=== PATIENT | female | born 1965 | race Caucasian/White ===

== ENCOUNTER 2017-05-21 15:07 | Emergency (ER) | payer OTHER, MEDICARE, MEDICAID ==
[2017-05-21 15:07] VITALS: BP 138/101
[2017-05-21] MEDS ORDERED: ONDANSETRON PF 4 MG/2 ML VIAL. IV ONE (15:15)
[2017-05-21] MEDS ORDERED: KETOROLAC 30 MG/ML VIAL. IV ONE (15:15)
[2017-05-21] MEDS ORDERED: 0.9 % SODIUM CHLORIDE 10 ML DISP.SYRIN. IV PRN (15:15)
[2017-05-21] MEDS ORDERED: IV NORMAL SALINE 1,000ML 1,000 ML IV SCH (15:15)
[2017-05-21] MEDS ORDERED: IOHEXOL 300 MG/ML 75 ML VIAL. IV ONE (15:30)
--- NOTE | 2017-05-21 15:59 | EKG ---
[address] [address] Test Date: 2017-05-21 Test Time: 15:23:30 Pat Name: AMBER MENENDEZ Department: Room: Gender: F [employer] Supervisor: : 1965 Requested By: ELLIS FERMIN Order Number: [id number] Reading MD: Measurements Intervals [place] Rate: 104 P: 72 VA: 132 QRS: 69 QRSD: 74 T: 42 QT: 320 QTc: 421 Interpretive Statements SINUS TACHYCARDIA NO SPECIFIC ECG ABNORMALITIES RI6.01 No previous ECG available for comparison
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
== END 2017-05-21 15:45 | disposition left against medical advice (07) ==
LOC: ER 15:07
DX: S20.219A Contusion of unspecified front wall of thorax, initial encounter (principal); S50.812A Abrasion of left forearm, initial encounter; S60.819A Abrasion of unspecified wrist, initial encounter; S80.812A Abrasion, left lower leg, initial encounter; V47.5XXA Car driver injured in collision with fixed or stationary object in traffic accident, initial encounter; Y93.89 Activity, other specified; Y92.488 Other paved roadways as the place of occurrence of the external cause; Y99.8 Other external cause status
CPT/HCPCS: 93005; 99283-25

== ENCOUNTER → 2017-07-14 | Emergency (ER) | payer MEDICARE, MEDICAID ==
[~2017-07-14] VITALS: Ht 172.7 cm; Wt 59.0 kg
[2017-07-14 07:50] VITALS: BP 137/114
== END | disposition left against medical advice (07) ==
LOC: ER 07:42
DX: R10.9 Unspecified abdominal pain (principal); Z53.21 Procedure and treatment not carried out due to patient leaving prior to being seen by health care provider

== ENCOUNTER 2017-08-11 20:54 | Emergency (ER) | payer MEDICARE, MEDICAID ==
[~2017-08-11] VITALS: Ht 170.2 cm; Wt 61.2 kg
[2017-08-11] MEDS ORDERED: IV NORMAL SALINE 1,000ML 1,000 ML IV ONE (21:30)
[2017-08-11] MEDS ORDERED: IOHEXOL 300 MG/ML 75 ML VIAL. IV ONE (21:30)
[2017-08-11] MEDS ORDERED: ONDANSETRON PF 4 MG/2 ML VIAL. IV ONE (21:45)
[2017-08-11] MEDS ORDERED: HYDROmorphone PF 1 MG/ML DISP.SYRIN IV ONE ×2 (21:45→23:45)
[2017-08-11 21:52] LABS: BASO # 0.1 x10^3/uL (0.0-0.2); BASO % 1 % (0-3); EOS # 0.5 x10^3/uL (0.0-0.7); EOS % 5 % (0-3); HEMATOCRIT 43.3 % (36.0-47.0); HEMOGLOBIN 14.7 g/dL (12.0-15.5); LYMPH # 3.2 x10^3/uL (1.0-4.8); LYMPH % 33 % (24-48); MEAN CORPUSCULAR HEMOGLOBIN 33 pg (25-35); MEAN CORPUSCULAR HGB CONC 34 g/dL (31-37); MEAN CORPUSCULAR VOLUME 96 fL (79-100); MONO # 0.7 x10^3/uL (0.0-1.1); MONO % 7 % (0-9); NEUT # 5.2 x10^3uL (1.8-7.7); NEUT % 54 % (31-73); PLATELET COUNT 340 x10^3/uL (140-400); RED BLOOD COUNT 4.52 x10^6/uL (3.50-5.40); RED CELL DISTRIBUTION WIDTH 12.7 % (11.5-14.5); WHITE BLOOD COUNT 9.7 x10^3/uL (4.0-11.0)
[2017-08-11 22:00] LABS: ALBUMIN 3.8 g/dL (3.4-5.0); CALCIUM 8.9 mg/dL (8.5-10.1); CREATININE 1.1 mg/dL (0.6-1.0); POTASSIUM 4.2 mmol/L (3.5-5.1); TOTAL BILIRUBIN 0.1 mg/dL (0.2-1.0); TOTAL PROTEIN 7.5 g/dL (6.4-8.2)
[2017-08-11 22:50] LABS: BACTERIA,URINE 0 /HPF (0-FEW); BILIRUBIN,URINE NEG (NEG); CLARITY,URINE CLEAR; COLOR,URINE YELLOW; GLUCOSE,URINE NEG (NEG); NITRITE,URINE NEG (NEG); RBC,URINE 0 /HPF (0-2); SQUAMOUS EPITHELIAL CELL,UR FEW /LPF; UROBILINOGEN,URINE 0.2 mg/dL (0.2 mg/dL); WBC,URINE OCC /HPF (0-4)
--- NOTE | 2017-08-11 23:08 | RAD ---
PQRS Compliance Statement: One or more of the following individualized dose reduction techniques were utilized for this examination: 1. Automated exposure control 2. Adjustment of the mA and/or kV according to patient size 3. Use of iterative reconstruction technique CT abdomen/pelvis with contrast August 11, 2017 INDICATION: Possible blockage immediately proximal to the ileostomy bag. Abdominal pain and distention. COMPARISON: None available TECHNIQUE: Multiple axial CT images of the abdomen and pelvis were obtained after the intravenous administration of 75 mL Omnipaque 300. Coronal and sagittal reformats are provided. FINDINGS: Lung bases are clear. Heart size is within normal limits. The liver, spleen and bilateral adrenal glands are normal in appearance. There is mild dilatation of the main pancreatic duct measuring up to 4 mm. The duct is dilated to the level of the ampulla. There is a soft tissue density in the region of the ampulla measuring 7 mm which is nonspecific. There is no intrahepatic or extrahepatic periductal dilatation. The common bile duct is not dilated. No suspicious pancreatic mass is identified. The abdominal aorta is normal in course and caliber with mild atherosclerotic calcification. There are no pathologically enlarged lymph nodes in abdomen or pelvis. There is no free fluid or free intraperitoneal air. Kidneys enhance symmetrically. No suspicious renal mass is identified. There is no hydronephrosis. The stomach is mildly distended with fluid and debris. There are prominent small bowel loops in the right lower quadrant leading up to the ostomy measuring up to 2.9 cm. No adjacent inflammatory changes are present. There is a dilated small bowel loop within a parastomal hernia containing fecal contents. No suspicious pelvic mass is identified. No suspicious osseous lesions are identified. IMPRESSION: 1. There is a parastomal hernia containing fecal contents which appears to contain a prominent small bowel loop. Immediately proximal to this region, there are mildly distended small bowel loops containing fluid measuring up to 2.9 cm. Stomach is mildly distended with fluid and debris. Electronically signed by: Estelle Madison MD (08/11/2017 11:05 PM) [facility]
[2017-08-12 01:06] VITALS: BP 120/84
--- NOTE | 2017-08-12 01:07 | EKG ---
[address] [address] Test Date: 2017-08-11 Test Time: 23:58:06 Pat Name: AMBER MENENDEZ Department: Room: Gender: F [employer] Bonder: ANIA : 1965 Requested By: MATA BLOCK Order Number: [id number] Reading MD: Measurements Intervals [place] Rate: 97 P: 62 PA: 144 QRS: 61 QRSD: 76 T: 44 QT: 352 QTc: 451 Interpretive Statements SINUS RHYTHM NO SPECIFIC ECG ABNORMALITIES RI6.01 Unconfirmed report No previous ECG available for comparison
--- NOTE | 2017-08-12 01:14 | PHYS DOC ---
Past History Past Medical History: Pancreatitis, Other Past Surgical History: Appendectomy, Cholecystectomy, , Other Alcohol Use: Occasionally Drug Use: Cocaine, Marijuana Adult General Chief Complaint Chief Complaint: ABDOMINAL PAIN HPI HPI Patient is a 52-year-old female who has an extensive past medical history including Crohn's colitis requiring a right lower quadrant ileostomy, multiple episodes of small bowel obstructions requiring 19 surgeries in the past, COPD, Tobacco abuse, GI bleed, depression, anxiety, benign lung mass, appendectomy, cholecystectomy, pancreatitis, migraine disorder, glaucoma, periosteal hernia, and a hysterectomy who presents to the ER today secondary to abdominal pain with acute onset after eating dinner. Patient reports the symptoms that she is experiencing today is very similar to her prior small bowel obstructions. Patient reports that her abdomen feels distended and that she feels like she is swollen as a huge lump redness to her colostomy site. Patient reports that she ate) the symptoms. Patient reports that she is on amoxicillin currently for bronchitis/COPD exacerbation. Patient reports that the pain started approximately 3 hours prior to arrival. Patient denies any vomiting. Patient denies any fevers shakes chills. Patient reports she is nauseous. Patient has any blood in her stool. Patient denies any change in her urinary output. Patient reports that she hasn't passed any flatus or stool through her ostomy bag. Patient reports that she was admitted once in the past and [facility] for evaluation of similar symptoms patient understands to do an endoscopy on her however secondary to an argument that her had with the nursing staff they both signed out AGAINST MEDICAL ADVICE at that time. Patient reports that she was admitted to the hospital in the past secondary to coronary artery disease and had a cardiac catheterization by Dr. De Leon that was unremarkable and did not require any stent placement. Patient reports that Dr. Nicolas is her surgeon who was evaluated her and treat her in the past as well. Patient reports Dr. Daniels is the GI doctor who is persistent to the endoscopy on her during her last visit to his hospital. Review of systems: Constitutional: Denies fever or chills Eyes: Denies change in visual acuity, redness, or eye pain HENT: Denies nasal congestion or sore throat Respiratory: Denies cough or shortness of breath All other systems were reviewed and found to be within normal limits, except as documented in this note. Physical exam: Constitutional: Well developed, well nourished, no acute distress, non-toxic appearance. HENT: Normocephalic, atraumatic, bilateral external ears normal, nose normal. Eyes: PERRLA, EOMI, conjunctiva normal, no discharge. Neck: Normal range of motion, no tenderness, supple, no stridor. Cardiovascular: Heart rate regular rhythm, Lungs & Thorax: Bilateral breath sounds clear to auscultation Abdomen: Abdomen appears to have no significant distention however she is tender to palpation and she does have some hardening around the area around her ostomy site. Patient does have bowel sounds. Skin: Warm, dry, no erythema, no rash. Back: Normal spinal curvature Extremities: No tenderness, no cyanosis, no clubbing, ROM intact, no edema. Neurologic: Alert and oriented X 3, normal motor function, normal sensory function, no focal deficits noted. Psychologic: Affect normal, judgement normal, mood normal. Patient's ER physical exam was most remarkable: EKG as interpreted by ER physician reveals: Normal sinus rhythm at a heart rate of [address]-T wave abnormalities no evidence of ST elevation LA, there is one PVC. CT scan of abdomen pelvis: Reveals dilated loops of small bowel to be consistent with small bowel instruction. Labs reviewed: Normal labs. Assessment and plan: 1. This is a 52-year-old female who presents here today secondary to abdominal pain and what appears to be a small bowel obstruction by symptoms and by CT scan. Patient will need to be admitted to the hospital for further evaluation at [facility] secondary to no availability of surgery here at [facility]. I discussed this with the patient and she is in agreement. While in the ER the patient be given IV fluids, adequate analgesia, patient has not had any further emesis in the ER so have not place an NG tube in her. Patient's labs have all been within normal limits. There is no evidence of significant dehydration or abnormalities on her labs. At this time the patient is clinically and hemodynamically stable. She has requested pain medicines on a couple occasions and has been relieved with 1 mg of Dilaudid. Current Medications Current Medications Current Medications Medications (Trade) Dose Ordered Sig/[facility] Start Time Stop Time Status Last Admin Dose Admin Hydromorphone HCl (Dilaudid) 1 mg 1X ONCE 08/11/17 23:45 08/12/17 00:34 DC 08/11/17 23:45 1 MG Iohexol (Omnipaque 300 Mg/ml) 75 ml 1X ONCE 08/11/17 21:30 08/11/17 21:36 DC Ondansetron HCl (Zofran) 4 mg 1X ONCE 08/11/17 21:45 08/11/17 21:46 DC 08/11/17 21:45 4 MG Sodium Chloride 1,000 ml @ 1,000 mls/hr 1X ONCE 08/11/17 21:30 08/11/17 22:29 DC 08/11/17 21:30 1,000 MLS/HR Allergies Allergies Allergies Coded Allergies Type Severity Reaction Last Updated Verified fluticasone Allergy Intermediate 08/11/17 Yes salmeterol Allergy Intermediate 08/11/17 Yes aspirin Allergy Mild 08/11/17 Yes Physical Exam Physical Exam Laboratory Tests Test 08/11/17 21:27 08/11/17 22:20 White Blood Count 9.7 x10^3/uL Red Blood Count 4.52 x10^6/uL Hemoglobin 14.7 g/dL Hematocrit 43.3 % Mean Corpuscular Volume 96 fL Mean Corpuscular Hemoglobin 33 pg Mean Corpuscular Hemoglobin Concent 34 g/dL Red Cell Distribution Width 12.7 % Platelet Count 340 x10^3/uL Neutrophils (%) (Auto) 54 % Lymphocytes (%) (Auto) 33 % Monocytes (%) (Auto) 7 % Eosinophils (%) (Auto) 5 % Basophils (%) (Auto) 1 % Neutrophils # (Auto) 5.2 x10^3uL Lymphocytes # (Auto) 3.2 x10^3/uL Monocytes # (Auto) 0.7 x10^3/uL Eosinophils # (Auto) 0.5 x10^3/uL Basophils # (Auto) 0.1 x10^3/uL Sodium Level 140 mmol/L Potassium Level 4.2 mmol/L Chloride Level 107 mmol/L Carbon Dioxide Level 25 mmol/L Anion Gap 8 Blood Urea Nitrogen 19 mg/dL Creatinine 1.1 mg/dL Estimated GFR (Cockcroft-Gault) 52.0 BUN/Creatinine Ratio 17 Glucose Level 107 mg/dL Calcium Level 8.9 mg/dL Total Bilirubin 0.1 mg/dL Aspartate Amino Transf (AST/SGOT) 14 U/L Alanine Aminotransferase (ALT/SGPT) 18 U/L Alkaline Phosphatase 88 U/L Total Protein 7.5 g/dL Albumin 3.8 g/dL Albumin/Globulin Ratio 1.0 Lipase 183 U/L Urine Collection Type Void Urine Color Yellow Urine Clarity Clear Urine pH 5.5 Urine Specific [place] >=1.030 Urine Protein Trace Urine Glucose (UA) Neg mg/dL Urine Ketones (Stick) Neg mg/dL Urine Blood Trace Urine Nitrite Neg Urine Bilirubin Neg Urine Urobilinogen Dipstick 0.2 mg/dL Urine Leukocyte Esterase Neg Urine RBC 0 /HPF Urine WBC Occ /HPF Urine Squamous Epithelial Cells Few /LPF Urine Bacteria 0 /HPF Current Medications Medications (Trade) Dose Ordered Sig/Bertha Route PRN Reason Start Time Stop Time Status Last Admin Dose Admin Sodium Chloride 1,000 ml @ 1,000 mls/hr 1X ONCE IV 08/11/17 21:30 08/11/17 22:29 DC 08/11/17 21:30 1,000 MLS/HR Iohexol (Omnipaque 300 Mg/ml) 75 ml 1X ONCE IV 08/11/17 21:30 08/11/17 21:36 DC Hydromorphone HCl (Dilaudid) 1 mg 1X ONCE IV 08/11/17 21:45 08/11/17 21:46 DC 08/11/17 21:46 1 MG Ondansetron HCl (Zofran) 4 mg 1X ONCE IV 08/11/17 21:45 08/11/17 21:46 DC 08/11/17 21:45 4 MG Hydromorphone HCl (Dilaudid) 1 mg 1X ONCE IV 08/11/17 23:45 08/12/17 00:34 DC 08/11/17 23:45 1 MG Current Patient Data Vital Signs Vital Signs Date Time Temp Pulse Resp B/P (MAP) Pulse Ox O2 Delivery O2 Flow Rate FiO2 08/11/17 21:46 18 Room Air 08/11/17 21:10 98.4 110 97 Lab Results Laboratory Tests Test 08/11/17 21:27 08/11/17 22:20 White Blood Count 9.7 x10^3/uL (4.0-11.0) Red Blood Count 4.52 x10^6/uL (3.50-5.40) Hemoglobin 14.7 g/dL (12.0-15.5) Hematocrit 43.3 % (36.0-47.0) Mean Corpuscular Volume 96 fL (79-100) Mean Corpuscular Hemoglobin 33 pg (25-35) Mean Corpuscular Hemoglobin Concent 34 g/dL (31-37) Red Cell Distribution Width 12.7 % (11.5-14.5) Platelet Count 340 x10^3/uL (140-400) Neutrophils (%) (Auto) 54 % (31-73) Lymphocytes (%) (Auto) 33 % (24-48) Monocytes (%) (Auto) 7 % (0-9) Eosinophils (%) (Auto) 5 % (0-3) H Basophils (%) (Auto) 1 % (0-3) Neutrophils # (Auto) 5.2 x10^3uL (1.8-7.7) Lymphocytes # (Auto) 3.2 x10^3/uL (1.0-4.8) Monocytes # (Auto) 0.7 x10^3/uL (0.0-1.1) Eosinophils # (Auto) 0.5 x10^3/uL (0.0-0.7) Basophils # (Auto) 0.1 x10^3/uL (0.0-0.2) Sodium Level 140 mmol/L (136-145) Potassium Level 4.2 mmol/L (3.5-5.1) Chloride Level 107 mmol/L (98-107) Carbon Dioxide Level 25 mmol/L (21-32) Anion Gap 8 (6-14) Blood Urea Nitrogen 19 mg/dL (7-20) Creatinine 1.1 mg/dL (0.6-1.0) H Estimated GFR (Cockcroft-Gault) 52.0 BUN/Creatinine Ratio 17 (6-20) Glucose Level 107 mg/dL (70-99) H Calcium Level 8.9 mg/dL (8.5-10.1) Total Bilirubin 0.1 mg/dL (0.2-1.0) L Aspartate Amino Transferase (AST) 14 U/L (15-37) L Alanine Aminotransferase (ALT) 18 U/L (14-59) Alkaline Phosphatase 88 U/L (46-116) Total Protein 7.5 g/dL (6.4-8.2) Albumin 3.8 g/dL (3.4-5.0) Albumin/Globulin Ratio 1.0 (1.0-1.7) Lipase 183 U/L (73-393) Urine Collection Type Void Urine Color Yellow Urine Clarity Clear Urine pH 5.5 Urine Specific [place] >=1.030 Urine Protein Trace (NEG-TRACE) Urine Glucose (UA) Neg mg/dL (NEG) Urine Ketones (Stick) Neg mg/dL (NEG) Urine Blood Trace (NEG) Urine Nitrite Neg (NEG) Urine Bilirubin Neg (NEG) Urine Urobilinogen Dipstick 0.2 mg/dL (0.2 mg/dL) Urine Leukocyte Esterase Neg (NEG) Urine RBC 0 /HPF (0-2) Urine WBC Occ /HPF (0-4) Urine Squamous Epithelial Cells Few /LPF Urine Bacteria 0 /HPF (0-FEW) EKG EKG [] Radiology/Procedures Radiology/Procedures [] Course & Med Decision Making Course & Med Decision Making Pertinent Labs and Imaging studies reviewed. (See chart for details) [] Dragon Disclaimer Dragon Disclaimer This electronic medical record was generated, in whole or in part, using a voice recognition dictation system. Departure Departure: Impression: Primary Impression: Abdominal pain Additional Impression: Small bowel obstruction Disposition: 05 XFER OTHER ([facility] for admission under the care of ) Referrals: PCP,NO (PCP) Problem Qualifiers MATA BLOCK MD Aug 12, 2017 01:14
[2017-08-12] MEDS ORDERED: NICOTINE 21MG PATCH. TD ONE (01:30)
[2017-08-12] MEDS ORDERED: HYDROmorphone PF 1 MG/ML DISP.SYRIN IV ONE (01:30)
== END 2017-08-12 01:57 | disposition short-term general hospital (02) ==
LOC: ER 20:54
DX: K56.699 Other intestinal obstruction unspecified as to partial versus complete obstruction (principal); I25.10 Atherosclerotic heart disease of native coronary artery without angina pectoris; G43.909 Migraine, unspecified, not intractable, without status migrainosus; H40.9 Unspecified glaucoma; F32.9 Major depressive disorder, single episode, unspecified; F41.9 Anxiety disorder, unspecified; K50.10 Crohn's disease of large intestine without complications; J44.1 Chronic obstructive pulmonary disease with (acute) exacerbation; F12.10 Cannabis abuse, uncomplicated; F14.10 Cocaine abuse, uncomplicated; Z90.49 Acquired absence of other specified parts of digestive tract; Z90.710 Acquired absence of both cervix and uterus; Z93.3 Colostomy status; Z88.6 Allergy status to analgesic agent; Z88.8 Allergy status to other drugs, medicaments and biological substances
CPT/HCPCS: 36415; 74177; 80053; 81001; 83690; 85025; 93005; 96361; 96374; 96375; 96376; 99285; J1170; J2405; J7030

== ENCOUNTER 2017-08-29 15:23 | Emergency (ER) | payer MEDICARE, MEDICAID ==
[~2017-08-29] VITALS: Ht 170.2 cm; Wt 61.1 kg
[2017-08-29 15:30] VITALS: BP 136/80
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
== END 2017-08-29 16:20 | disposition left against medical advice (07) ==
LOC: ER 15:23
DX: F41.9 Anxiety disorder, unspecified (principal); Z91.419 Personal history of unspecified adult abuse; Z72.0 Tobacco use; Z71.6 Tobacco abuse counseling; F10.20 Alcohol dependence, uncomplicated; K21.9 Gastro-esophageal reflux disease without esophagitis; F12.10 Cannabis abuse, uncomplicated; F14.10 Cocaine abuse, uncomplicated; Z88.6 Allergy status to analgesic agent; Z88.8 Allergy status to other drugs, medicaments and biological substances
CPT/HCPCS: 99283

== ENCOUNTER 2017-09-09 12:36 | Emergency (ER) | payer MEDICARE, MEDICAID ==
[~2017-09-09] VITALS: Ht 170.2 cm; Wt 6.4 kg
[2017-09-09] MEDS ORDERED: IV NORMAL SALINE 1,000ML 1,000 ML IV ONE (12:45)
--- NOTE | 2017-09-09 12:57 | PHYS DOC ---
Past History Past Medical History: Alcoholism, GERD, Pancreatitis, Other Past Surgical History: Appendectomy, Cholecystectomy, , Other Alcohol Use: Occasionally Drug Use: Cocaine, Marijuana Adult General Chief Complaint Chief Complaint: ABDOMINAL PAIN HPI HPI 52-year-old female presenting to the emergency department today with abdominal pain nausea and vomiting. She reports a history of multiple abdominal surgeries and a history of small bowel obstruction from adhesions. The patient's surgeon is Dr. Arnold. The patient has abdominal pain in the epigastrium that is sharp mild to moderate nonradiating intermittent and without alleviating factors. It is associated with nausea and vomiting. The patients vomitus is nonbilious and nonbloody. Review of systems is negative for chest pain shortness of breath fevers chills. All other review of systems is negative unless otherwise noted in history of present illness. ED course: 52-year-old female presenting to the emergency department today with abdominal pain with nausea and vomiting. IV established. Nausea and pain medications administered along with fluids. Blood work unremarkable. CT abdomen pelvis not suggestive of acute pathology. On reexamination the patient is feeling better. Reexamination of the abdomen shows a soft nontender abdomen without rebound tenderness or guarding. Abdomen remains nondistended with normal bowel sounds. I offered the patient admission to the hospital for IV fluid administration nausea and pain medications along with monitoring. The patient declined. She desires to be discharged to follow-up with her doctor the next few days which I feel is reasonable. The patient was then discharged home in stable condition to follow up with their primary care physician over the next 2-3 days. They were to return if their symptoms worsened or if they were concerned for any reason. [id number] discharge instructions and return precautions were given. Patient's questions were answered to their satisfaction. Patient is comfortable with plan. Review of Systems Review of Systems SEE ABOVE. Current Medications Current Medications Current Medications Medications (Trade) Dose Ordered Sig/Bertha Start Time Stop Time Status Last Admin Dose Admin Sodium Chloride 1,000 ml @ 1,000 mls/hr 1X ONCE 09/09/17 12:45 09/09/17 13:44 Allergies Allergies Allergies Coded Allergies Type Severity Reaction Last Updated Verified fluticasone Allergy Intermediate 08/11/17 Yes salmeterol Allergy Intermediate 08/11/17 Yes aspirin Allergy Mild 08/11/17 Yes Physical Exam Physical Exam SEE ABOVE Constitutional: Well developed, well nourished, no acute distress, non-toxic appearance. [] HENT: Normocephalic, atraumatic, bilateral external ears normal, oropharynx moist, no oral exudates, nose normal. Eyes: PERRLA, EOMI, conjunctiva normal, no discharge. [] Neck: Normal range of motion, no tenderness, supple, no stridor. [] Cardiovascular:Heart rate regular rhythm, no murmur Lungs & Thorax: Bilateral breath sounds clear to auscultation [] Abdomen: Patient has an ileostomy in the right lower quadrant which is draining mildly loose stool. Upon abdominal exam the patient has a nondistended mildly tender abdomen without rebound tenderness or guarding. The patient's tenderness is generalized. The patient does not have peritonitis or rebound tenderness. Bowel sounds are present. Skin: Warm, dry, no erythema, no rash. [] Back: No tenderness, no CVA tenderness. Extremities: No tenderness, no cyanosis, no clubbing, ROM intact, no edema. Neurologic: Alert and oriented X 3, normal motor function, normal sensory function, no focal deficits noted. [] Psychologic: Affect normal, judgement normal, mood normal. [] EKG EKG [] Radiology/Procedures Radiology/Procedures [] Course & Med Decision Making Course & Med Decision Making Pertinent Labs and Imaging studies reviewed. (See chart for details) [] Dragon Disclaimer Dragon Disclaimer This electronic medical record was generated, in whole or in part, using a voice recognition dictation system. Departure Departure: Impression: Primary Impression: Abdominal pain Disposition: HOME, SELF-CARE Condition: STABLE Referrals: PCP,NO (PCP) Patient Instructions: Abdominal Pain Additional Instructions: Thank you for allowing us to participate in your care today. Followup with your primary care physician in 3 days if your symptoms do not improve. Call your Primary Doctor tomorrow and inform them of your visit today. If you do not have a primary care provider you can ask for a list of our primary care providers. Return to the emergency department you have any new or concerning findings. This should be evaluated by the primary care physician and any necessary consulting services for continued management within a few days after discharge. Return to emergency room if you have any new or concerning symptoms including but not limited to fever, chills, nausea, vomiting, intractable pain, any new rashes, chest pain, shortness of air, uncontrolled bleeding, difficulty breathing, and/or vision loss. You may have been prescribed medication that can change in your level of thinking and ability to operate machinery. These medications include hydrocodone and Ativan. Also, Benadryl has been known to do this as well. Be sure to check with your pharmacist and ask if the medications you've prescribed can affect your level of consciousness. I recommend not operating heavy machinery or driving while on medication such as these. Scripts Ondansetron Hcl (ZOFRAN) 4 Mg Tablet 1 TAB PO PRN Q6HRS Y for NAUSEA, #6 TAB Prov: NADINE FINK MD 09/09/17 Hydrocodone Bit/Acetaminophen (HYDROCODONE-APAP 5-325 ) 1 Each Tablet 1 TAB PO PRN Q6HRS Y for PAIN, #10 TAB 0 Refills Prov: NADINE FINK MD 09/09/17 NADINE FINK MD Sep 09, 2017 12:57
[2017-09-09 13:32] LABS: BASO % 1 % (0-3); EOS # 0.1 x10^3/uL (0.0-0.7); EOS % 1 % (0-3); HEMATOCRIT 40.8 % (36.0-47.0); LYMPH # 1.5 x10^3/uL (1.0-4.8); LYMPH % 18 % (24-48); MEAN CORPUSCULAR HEMOGLOBIN 33 pg (25-35); MEAN CORPUSCULAR HGB CONC 34 g/dL (31-37); MEAN CORPUSCULAR VOLUME 95 fL (79-100); MONO # 0.4 x10^3/uL (0.0-1.1); MONO % 4 % (0-9); NEUT # 6.5 x10^3uL (1.8-7.7); NEUT % 76 % (31-73); PLATELET COUNT 345 x10^3/uL (140-400); RED BLOOD COUNT 4.29 x10^6/uL (3.50-5.40); RED CELL DISTRIBUTION WIDTH 13.1 % (11.5-14.5); WHITE BLOOD COUNT 8.6 x10^3/uL (4.0-11.0)
[2017-09-09] MEDS ORDERED: ONDANSETRON PF 4 MG/2 ML VIAL. IV ONE ×2 (13:45→15:15)
[2017-09-09 13:55] LABS: ALBUMIN 4.1 g/dL (3.4-5.0); DIRECT BILIRUBIN 0.1 mg/dL (0.0-0.2); TOTAL BILIRUBIN 0.2 mg/dL (0.2-1.0); TOTAL PROTEIN 7.3 g/dL (6.4-8.2)
[2017-09-09 14:13] LABS: CALCIUM 9.4 mg/dL (8.5-10.1); CREATININE 0.9 mg/dL (0.6-1.0); GFR 65.5; POTASSIUM 4.1 mmol/L (3.5-5.1)
[2017-09-09 14:34] LABS: BACTERIA,URINE 0 /HPF (0-FEW); BILIRUBIN,URINE NEG (NEG); CLARITY,URINE HAZY; COLOR,URINE YELLOW; GLUCOSE,URINE NEG (NEG); NITRITE,URINE NEG (NEG); RBC,URINE 0 /HPF (0-2); SQUAMOUS EPITHELIAL CELL,UR OCC /LPF; UROBILINOGEN,URINE 0.2 mg/dL (0.2 mg/dL); WBC,URINE 0 /HPF (0-4)
[2017-09-09] MEDS ORDERED: IOHEXOL 300 MG/ML 75 ML VIAL. IV ONE (14:45)
[2017-09-09] MEDS ORDERED: CONTRAST GIVEN MC PRN (14:45)
--- NOTE | 2017-09-09 15:12 | RAD ---
CT abdomen and pelvis without contrast 09/09/2017 Clinical indication: Nausea and vomiting and abdominal pain. History of bowel obstruction and hernias. Comparison: CT abdomen and pelvis 08/11/2017. Technique: Multiple CT images of the abdomen and pelvis were obtained without contrast. PQRS Compliance Statement: One or more of the following individualized dose reduction techniques were utilized for this examination: 1. Automated exposure control 2. Adjustment of the mA and/or kV according to patient size 3. Use of iterative reconstruction technique Findings: Heart size is normal. Mild emphysema in the visualized lung bases. There is a stable 0.2 cm noncalcified nodule in the anterior left lung base series 2/image 5 and is considered benign in the absence of known or suspected malignancy. Evaluation of the solid abdominopelvic viscera, lymphadenopathy and vasculature is limited in the absence of intravenous contrast. The unenhanced contours of the liver, spleen, adrenal glands, pancreas and kidneys are grossly unremarkable. No hydroureteronephrosis or nephrolithiasis. Abdominal aorta is normal in caliber with mild calcified atheromatous disease. Prior ventral hernia repair with mesh. 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 Small bowel loops are normal in caliber without obstruction. No pneumatosis or pneumoperitoneum. No abdominal free fluid. The mildly distended and unopacified urinary bladder is unremarkable. Prior hysterectomy. There are no destructive osseous lesions. Impression: 1. Prior total colectomy and right lower quadrant ileostomy without bowel obstruction. 2. Mild emphysema.
[2017-09-09] MEDS ORDERED: HYDR-2758 PO (15:36)
[2017-09-09] MEDS ORDERED: ONDA4TAB7 PO (15:36)
[2017-09-09 15:56] VITALS: BP 133/81
== END 2017-09-09 16:07 | disposition home or self-care (01) ==
LOC: ER 12:36
DX: R10.13 Epigastric pain (principal); R11.2 Nausea with vomiting, unspecified; R19.7 Diarrhea, unspecified; K21.9 Gastro-esophageal reflux disease without esophagitis; F10.20 Alcohol dependence, uncomplicated; F12.10 Cannabis abuse, uncomplicated; F14.10 Cocaine abuse, uncomplicated; Z90.49 Acquired absence of other specified parts of digestive tract; Z98.890 Other specified postprocedural states; Z88.8 Allergy status to other drugs, medicaments and biological substances; Z88.6 Allergy status to analgesic agent
CPT/HCPCS: 36415; 74176; 80048; 80076; 81001; 81025; 83690; 85025; 96361; 96374; 96375; 96376; 99285; J2405; J3010; J7030

== ENCOUNTER 2018-01-21 15:34 | Emergency (ER) | payer MEDICARE, MEDICAID ==
[~2018-01-21] VITALS: Ht 170.2 cm; Wt 61.1 kg
[~2018-01-21 15:34] MED LIST: HYDR-2758 PO; ONDA4TAB7 PO
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
[2018-01-21] MEDS ORDERED: IV NORMAL SALINE 1,000ML 1,000 ML IV ONE (16:15)
[2018-01-21 16:52] LABS: BASO # 0.1 x10^3/uL (0.0-0.2); BASO % 1 % (0-3); EOS # 0.1 x10^3/uL (0.0-0.7); EOS % 2 % (0-3); HEMATOCRIT 38.7 % (36.0-47.0); HEMOGLOBIN 13.2 g/dL (12.0-15.5); LYMPH # 1.5 x10^3/uL (1.0-4.8); LYMPH % 17 % (24-48); MEAN CORPUSCULAR HEMOGLOBIN 32 pg (25-35); MEAN CORPUSCULAR HGB CONC 34 g/dL (31-37); MEAN CORPUSCULAR VOLUME 94 fL (79-100); MONO # 0.6 x10^3/uL (0.0-1.1); MONO % 6 % (0-9); NEUT # 6.9 x10^3uL (1.8-7.7); NEUT % 75 % (31-73); PLATELET COUNT 329 x10^3/uL (140-400); RED BLOOD COUNT 4.14 x10^6/uL (3.50-5.40); RED CELL DISTRIBUTION WIDTH 13.6 % (11.5-14.5); WHITE BLOOD COUNT 9.2 x10^3/uL (4.0-11.0)
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
[2018-01-21 17:08] LABS: ALBUMIN 3.6 g/dL (3.4-5.0); ALBUMIN/GLOBULIN RATIO 1.2 (1.0-1.7); CALCIUM 8.3 mg/dL (8.5-10.1); POTASSIUM 4.3 mmol/L (3.5-5.1); TOTAL BILIRUBIN 0.2 mg/dL (0.2-1.0); TOTAL PROTEIN 6.6 g/dL (6.4-8.2)
[2018-01-21 17:23] LABS: BILIRUBIN,URINE NEG (NEG); CLARITY,URINE CLEAR; COLOR,URINE STRAW; GLUCOSE,URINE NEG (NEG); NITRITE,URINE NEG (NEG); UROBILINOGEN,URINE 0.2 mg/dL (0.2 mg/dL)
[2018-01-21 17:24] LABS: BACTERIA,URINE FEW /HPF (0-FEW); SQUAMOUS EPITHELIAL CELL,UR MOD /LPF; YEAST,URINE PRESENT /HPF
[2018-01-21] MEDS ORDERED: KETOROLAC 30 MG/ML VIAL. IV ONE (17:30)
[2018-01-21 17:37] VITALS: BP 114/70
== END 2018-01-21 17:59 | disposition home or self-care (01) ==
LOC: ER 15:34 → EEVIPCON 15:34 → ER 17:59
DX: M54.2 Cervicalgia (principal); R07.81 Pleurodynia; M25.511 Pain in right shoulder; M25.512 Pain in left shoulder; S50.812A Abrasion of left forearm, initial encounter; F10.20 Alcohol dependence, uncomplicated; K21.9 Gastro-esophageal reflux disease without esophagitis; G43.909 Migraine, unspecified, not intractable, without status migrainosus; Y04.0XXA Assault by unarmed brawl or fight, initial encounter; Y93.89 Activity, other specified; Y99.8 Other external cause status; Y92.89 Other specified places as the place of occurrence of the external cause
CPT/HCPCS: 36415; 71101; 72040; 80053; 81001; 85025; 96374; 99285; J1885; J7030

== ENCOUNTER 2018-04-02 12:10 | Emergency (ER) | payer MEDICARE, MEDICAID ==
[~2018-04-02] VITALS: Ht 170.2 cm; Wt 61.1 kg
[2018-04-02] MEDS ORDERED: IV NORMAL SALINE 1,000ML 1,000 ML IV SCH (12:46)
[2018-04-02] MEDS ORDERED: FAMOTIDINE 20 MG/2 ML VIAL IVP ONE (13:00)
[2018-04-02] MEDS ORDERED: ONDANSETRON PF 4 MG/2 ML VIAL. IV ONE (13:00)
[2018-04-02 13:22] LABS: BASO % 1 % (0-3); EOS # 0.2 x10^3/uL (0.0-0.7); EOS % 3 % (0-3); HEMATOCRIT 42.4 % (36.0-47.0); HEMOGLOBIN 14.5 g/dL (12.0-15.5); LYMPH # 1.8 x10^3/uL (1.0-4.8); LYMPH % 29 % (24-48); MEAN CORPUSCULAR HEMOGLOBIN 32 pg (25-35); MEAN CORPUSCULAR HGB CONC 34 g/dL (31-37); MEAN CORPUSCULAR VOLUME 93 fL (79-100); MONO # 0.4 x10^3/uL (0.0-1.1); MONO % 7 % (0-9); NEUT # 3.7 x10^3uL (1.8-7.7); NEUT % 60 % (31-73); PLATELET COUNT 361 x10^3/uL (140-400); RED BLOOD COUNT 4.56 x10^6/uL (3.50-5.40); RED CELL DISTRIBUTION WIDTH 13.8 % (11.5-14.5); WHITE BLOOD COUNT 6.1 x10^3/uL (4.0-11.0)
[2018-04-02 13:23] LABS: BACTERIA,URINE 0 /HPF (0-FEW); BILIRUBIN,URINE NEG (NEG); CLARITY,URINE HAZY; COLOR,URINE YELLOW; GLUCOSE,URINE NEG (NEG); NITRITE,URINE NEG (NEG); RBC,URINE 0 /HPF (0-2); SQUAMOUS EPITHELIAL CELL,UR FEW /LPF; UROBILINOGEN,URINE 0.2 mg/dL (0.2 mg/dL); WBC,URINE 0 /HPF (0-4)
--- NOTE | 2018-04-02 13:25 | RAD ---
Acute abdomen series, 3 views, 04/02/2018: HISTORY: Abdominal pain and vomiting The abdominal gas pattern is unremarkable without evidence of obstruction. No free air is seen in the abdomen. Surgical clips are present in the right upper quadrant. There is no evidence organomegaly. The heart size is normal. The lungs are clear. There is no evidence of pleural fluid. A mild thoracolumbar scoliosis is evident. There are subacute appearing, incompletely healed fractures of the lateral aspects of the ninth ribs bilaterally. IMPRESSION: No acute abdominal abnormality is detected. Electronically signed by: Richard Isaacs MD (04/02/2018 1:21 PM) [facility]
[2018-04-02 13:36] LABS: ALBUMIN/GLOBULIN RATIO 1.1 (1.0-1.7); CALCIUM 9.1 mg/dL (8.5-10.1); CREATININE 1.3 mg/dL (0.6-1.0); GFR 42.8; TOTAL BILIRUBIN 0.2 mg/dL (0.2-1.0); TOTAL PROTEIN 7.5 g/dL (6.4-8.2)
--- NOTE | 2018-04-02 13:57 | RAD ---
Examination: CT of the abdomen pelvis without contrast HISTORY: History of abdominal pain, vomiting COMPARISON: 09/09/2017 TECHNIQUE: Axial CT images of the abdomen pelvis were performed without contrast. Coronal and sagittal deformities are performed Exposure: One or more of the following individualized dose reduction techniques were utilized for this examination: 1. Automated exposure control 2. Adjustment of the mA and/or kV according to patient size 3. Use of iterative reconstruction technique FINDINGS: Mild emphysematous changes identified in the bibasilar lungs. No evidence of free air identified in the abdomen. The evaluation of the solid organs is limited due to lack of IV contrast. The evaluation of bowel is limited due to lack of oral contrast. The visualized noncontrasted liver, spleen, adrenals grossly appears unremarkable. Cholecystectomy clips identified. The stomach is mildly distended. The visualized pancreas grossly appears unremarkable. Mild prominent appearing pancreatic duct is similar to prior exam. No evidence of intrarenal collecting system calculi or hydronephrosis. Ileostomy changes identified in the right lower quadrant of the abdomen. Minimal distended proximal small bowel loops. The distal small bowel loops are nondistended. Mild aortic atherosclerosis. Mild degenerative changes lumbar spine. IMPRESSION: 1. Minimally distended proximal small bowel loops. Nonspecific otherwise no acute intra-abdominal findings. 2. Changes of right ileostomy. Electronically signed by: Malcolm Beasley MD (04/02/2018 1:53 PM) [id number]
--- NOTE | 2018-04-02 14:26 | PHYS DOC ---
Past History Past Medical History: Alcoholism, Depression, GERD, Migraines, Pancreatitis, Other Past Surgical History: Appendectomy, Cholecystectomy, Colectomy, , Hysterectomy, Oophorectomy, Other Alcohol Use: Occasionally Drug Use: Cocaine, Marijuana Adult General Chief Complaint Chief Complaint: ABDOMINAL PAIN HPI HPI Patient is a 52 year old female who presents with complaint of abdominal pain, nausea, and vomiting. Patient has history of Crohn's disease and is not currently on controller medication. Patient is also had extensive abdominal surgeries due to complications of Crohn's disease. Patient states over the past 3-4 days she has had worsening generalized abdominal pain and decreased oral intake. Patient has a right ileostomy and states that she has had low output but has been passing gas throughout. Patient has history of bowel obstruction but has had nonoperative treatment and her past 2 episodes with resolution of symptoms. Patient denies any fevers. Patient states she has been having dizziness and lightheadedness which she attributes to dehydration from decreased oral intake. Patient states that she has taken Zofran in the past but states that this has not offered improvement in her symptoms. Denies blood in her vomit or bloody stools. Patient has follow-up with Dr. Arnold of general surgery most recently for her complaints. Patient has not seen a GI doctor as an outpatient. Review of Systems Review of Systems Constitutional: Denies fever or chills [] Eyes: Denies change in visual acuity, redness, or eye pain [] HENT: Denies nasal congestion or sore throat [] Respiratory: Denies cough or shortness of breath [] Cardiovascular: Denies chest pain or edema[] GI: Abdominal pain, nausea, vomiting[] : Denies dysuria or hematuria [] Musculoskeletal: Denies back pain or joint pain [] Integument: Denies rash or skin lesions [] Neurologic: Denies headache, focal weakness or sensory changes [] All other systems were reviewed and found to be within normal limits, except as documented in this note. Current Medications Current Medications Current Medications Medications (Trade) Dose Ordered Sig/Bertha Start Time Stop Time Status Last Admin Dose Admin Famotidine (Pepcid Vial) 20 mg 1X ONCE 04/02/18 13:00 04/02/18 13:01 DC 04/02/18 13:18 20 MG Fentanyl Citrate (Fentanyl 2ml Vial) 50 mcg PRN Q15MIN PRN 04/02/18 13:00 04/03/18 12:59 04/02/18 13:18 50 MCG Ondansetron HCl (Zofran) 4 mg 1X ONCE 04/02/18 13:00 04/02/18 13:01 DC 04/02/18 13:17 4 MG Sodium Chloride 1,000 ml @ 1,000 mls/hr Q1H 04/02/18 12:46 04/02/18 13:45 DC 04/02/18 13:21 1,000 MLS/HR Allergies Allergies Allergies Coded Allergies Type Severity Reaction Last Updated Verified Iodinated Contrast- Oral and IV Dye Allergy Intermediate HIVES/RASH 09/09/17 Yes fluticasone Allergy Intermediate 08/11/17 Yes salmeterol Allergy Intermediate 08/11/17 Yes aspirin Allergy Mild 08/11/17 Yes metoclopramide Allergy Unknown AGITATION 09/09/17 Yes prochlorperazine Allergy Unknown AGITATION 09/09/17 Yes Physical Exam Physical Exam Constitutional: Alert, afebrile, appears in moderate discomfort. [] HENT: Normocephalic, atraumatic, bilateral external ears normal, oropharynx moist, no oral exudates, nose normal. [] Eyes: PERRLA, EOMI, conjunctiva normal, no discharge. [] Neck: Normal range of motion, no tenderness, supple, no stridor. [] Cardiovascular:Heart rate regular rhythm, no murmur [] Lungs & Thorax: Bilateral breath sounds clear to auscultation [] Abdomen: Bowel sounds normal, soft, right-sided ileostomy, diffuse abdominal tenderness to palpation, no masses, no pulsatile masses. [] Skin: Warm, dry, no erythema, no rash. [] Back: No tenderness, no CVA tenderness. [] Extremities: No tenderness, no cyanosis, no clubbing, ROM intact, no edema. [] Neurologic: Alert and oriented X 3, normal motor function, normal sensory function, no focal deficits noted. [] Current Patient Data Vital Signs Vital Signs Date Time Temp Pulse Resp B/P (MAP) Pulse Ox O2 Delivery O2 Flow Rate FiO2 04/02/18 13:18 93 04/02/18 12:25 98.4 108 20 Room Air Lab Results Laboratory Tests Test 04/02/18 12:48 04/02/18 13:06 Urine Collection Type Unknown Urine Color Yellow Urine Clarity Hazy Urine pH 5.5 Urine Specific Davis 1.010 Urine Protein Neg (NEG-TRACE) Urine Glucose (UA) Neg mg/dL (NEG) Urine Ketones (Stick) Neg mg/dL (NEG) Urine Blood Trace (NEG) Urine Nitrite Neg (NEG) Urine Bilirubin Neg (NEG) Urine Urobilinogen Dipstick 0.2 mg/dL (0.2 mg/dL) Urine Leukocyte Esterase Neg (NEG) Urine RBC 0 /HPF (0-2) Urine WBC 0 /HPF (0-4) Urine Squamous Epithelial Cells Few /LPF Urine Bacteria 0 /HPF (0-FEW) White Blood Count 6.1 x10^3/uL (4.0-11.0) Red Blood Count 4.56 x10^6/uL (3.50-5.40) Hemoglobin 14.5 g/dL (12.0-15.5) Hematocrit 42.4 % (36.0-47.0) Mean Corpuscular Volume 93 fL (79-100) Mean Corpuscular Hemoglobin 32 pg (25-35) Mean Corpuscular Hemoglobin Concent 34 g/dL (31-37) Red Cell Distribution Width 13.8 % (11.5-14.5) Platelet Count 361 x10^3/uL (140-400) Neutrophils (%) (Auto) 60 % (31-73) Lymphocytes (%) (Auto) 29 % (24-48) Monocytes (%) (Auto) 7 % (0-9) Eosinophils (%) (Auto) 3 % (0-3) Basophils (%) (Auto) 1 % (0-3) Neutrophils # (Auto) 3.7 x10^3uL (1.8-7.7) Lymphocytes # (Auto) 1.8 x10^3/uL (1.0-4.8) Monocytes # (Auto) 0.4 x10^3/uL (0.0-1.1) Eosinophils # (Auto) 0.2 x10^3/uL (0.0-0.7) Basophils # (Auto) 0.0 x10^3/uL (0.0-0.2) Sodium Level 136 mmol/L (136-145) Potassium Level 4.0 mmol/L (3.5-5.1) Chloride Level 104 mmol/L (98-107) Carbon Dioxide Level 21 mmol/L (21-32) Anion Gap 11 (6-14) Blood Urea Nitrogen 14 mg/dL (7-20) Creatinine 1.3 mg/dL (0.6-1.0) H Estimated GFR (Cockcroft-Gault) 42.8 BUN/Creatinine Ratio 11 (6-20) Glucose Level 101 mg/dL (70-99) H Calcium Level 9.1 mg/dL (8.5-10.1) Total Bilirubin 0.2 mg/dL (0.2-1.0) Aspartate Amino Transferase (AST) 12 U/L (15-37) L Alanine Aminotransferase (ALT) 14 U/L (14-59) Alkaline Phosphatase 79 U/L (46-116) Total Protein 7.5 g/dL (6.4-8.2) Albumin 4.0 g/dL (3.4-5.0) Albumin/Globulin Ratio 1.1 (1.0-1.7) Lipase 202 U/L (73-393) EKG EKG Interpreted by me: Heart rate 83, sinus rhythm, normal intervals, normal axis, no acute ST/T-wave abnormalities present[] Radiology/Procedures Radiology/[place] [address] IMAGING REPORT Signed PATIENT: AMBER MENENDEZ ACCOUNT: [id number] : 1965 LOCATION: ER AGE: 52 SEX: F EXAM STATUS: REG ER ORD. PHYSICIAN: REJI AQUINO MD REASON: abdominal pain, vomiting PROCEDURE: ACUTE ABDOMEN SERIES Acute abdomen series, 3 views, 04/02/2018: HISTORY: Abdominal pain and vomiting The abdominal gas pattern is unremarkable without evidence of obstruction. No free air is seen in the abdomen. Surgical clips are present in the right upper quadrant. There is no evidence organomegaly. The heart size is normal. The lungs are clear. There is no evidence of pleural fluid. A mild thoracolumbar scoliosis is evident. There are subacute appearing, incompletely healed fractures of the lateral aspects of the ninth ribs bilaterally. IMPRESSION: No acute abdominal abnormality is detected. Electronically signed by: Richard Isaacs MD (04/02/2018 1:21 PM) [facility] DICTATED AND SIGNED BY: RICHARD ISAACS MD DATE: 04/02/18 1317 CC: REJI AQUINO MD; PCP,NO ~ [address] [address] IMAGING REPORT Signed PATIENT: AMBER MENENDEZ ACCOUNT: [id number] : 1965 LOCATION: ER AGE: 52 SEX: F EXAM STATUS: REG ER ORD. PHYSICIAN: REJI AQUINO MD REASON: abdominal pain, vomiting PROCEDURE: CT ABDOMEN PELVIS WO CONTRAST Examination: CT of the abdomen pelvis without contrast HISTORY: History of abdominal pain, vomiting COMPARISON: 09/09/2017 TECHNIQUE: Axial CT images of the abdomen pelvis were performed without contrast. Coronal and sagittal deformities are performed Exposure: One or more of the following individualized dose reduction techniques were utilized for this examination: 1. Automated exposure control 2. Adjustment of the mA and/or kV according to patient size 3. Use of iterative reconstruction technique FINDINGS: Mild emphysematous changes identified in the bibasilar lungs. No evidence of free air identified in the abdomen. The evaluation of the solid organs is limited due to lack of IV contrast. The evaluation of bowel is limited due to lack of oral contrast. The visualized noncontrasted liver, spleen, adrenals grossly appears unremarkable. Cholecystectomy clips identified. The stomach is mildly distended. The visualized pancreas grossly appears unremarkable. Mild prominent appearing pancreatic duct is similar to prior exam. No evidence of intrarenal collecting system calculi or hydronephrosis. Ileostomy changes identified in the right lower quadrant of the abdomen. Minimal distended proximal small bowel loops. The distal small bowel loops are nondistended. Mild aortic atherosclerosis. Mild degenerative changes lumbar spine. IMPRESSION: 1. Minimally distended proximal small bowel loops. Nonspecific otherwise no acute intra-abdominal findings. 2. Changes of right ileostomy. Electronically signed by: Malcolm Johnson MD (04/02/2018 1:53 PM) [facility] DICTATED AND SIGNED BY: MALCOLM JOHNSON MD DATE: 04/02/18 1346 CC: REJI AQUINO MD; PCP,NO ~ [] Course & Med Decision Making Course & Med Decision Making Pertinent Labs and Imaging studies reviewed. (See chart for details) Patient was treated with IV fentanyl, Zofran, and IV fluids. Patient's lab work largely unremarkable. Patient CT findings could be consistent with mild ileus. Advised patient to continue with fluid diet and patient was prescribed erythromycin, Medrol, and tramadol for treatment. Advised follow-up with Dr. Harden of gastroenterology in one to 2 weeks for outpatient GI evaluation. Advised return to emergency department for any worsening symptoms. Patient was understanding and agreement with treatment plan. Dragon Disclaimer Dragon Disclaimer This electronic medical record was generated, in whole or in part, using a voice recognition dictation system. Departure Departure: Impression: Primary Impression: Abdominal pain Additional Impression: Nausea and vomiting Disposition: HOME, SELF-CARE Condition: IMPROVED Referrals: [facility] (PCP) SANGITA HARDEN MD Patient Instructions: Abdominal Pain (Nonspecific), Nausea and Vomiting Additional Instructions: Follow-up with Dr. Harden of gastroenterology in the next 1-2 weeks for reevaluation. Return to the emergency department for any worsening symptoms. Scripts Tramadol Hcl (TRAMADOL HCL) 50 Mg Tablet 50 MG PO Q6HRS PRN for PAIN, #30 TAB Prov: REJI AQUINO MD 04/02/18 Methylprednisolone (MEDROL) 4 Mg Tab.ds.pk 1 PKG PO UD, #1 PKG Prov: REJI AQUINO MD 04/02/18 Erythromycin Base (ERYTHROMYCIN) 250 Mg Tablet 250 MG PO TID, #30 TAB Prov: REJI AQUINO MD 04/02/18 Problem Qualifiers Primary Impression: Abdominal pain Abdominal location: generalized Qualified Codes: R10.84 - Generalized abdominal pain Additional Impression: Nausea and vomiting Vomiting type: unspecified Vomiting Intractability: non-intractable Qualified Codes: R11.2 - Nausea with vomiting, unspecified REJI AQUINO MD Apr 02, 2018 14:26
[2018-04-02] MEDS ORDERED: ERYT250T14 PO (14:54)
[2018-04-02] MEDS ORDERED: METH4TAB2 PO (14:54)
[2018-04-02] MEDS ORDERED: TRAM50TA PO (14:54)
[2018-04-02 14:57] VITALS: BP 158/81
--- NOTE | 2018-04-03 06:31 | EKG ---
[address] [address] Test Date: 2018-04-02 Test Time: 12:59:58 Pat Name: AMBER MENENDEZ Department: Room: Gender: F Certified Performance Technologist: : 1965 Requested By: REJI AQUINO Order Number: [id number] Reading MD: Measurements Intervals [place] Rate: 83 P: 61 MT: 144 QRS: 89 QRSD: 64 T: 63 QT: 346 QTc: 407 Interpretive Statements SINUS RHYTHM QRS(T) CONTOUR ABNORMALITY CONSISTENT WITH ANTEROSEPTAL INFARCT AGE UNDETERMINED ABNORMAL ECG RI6.01 Unconfirmed report No previous ECG available for comparison
== END 2018-04-02 15:10 | disposition home or self-care (01) ==
LOC: ER 12:10
DX: R10.84 Generalized abdominal pain (principal); R11.2 Nausea with vomiting, unspecified; F10.20 Alcohol dependence, uncomplicated; K21.9 Gastro-esophageal reflux disease without esophagitis; G43.909 Migraine, unspecified, not intractable, without status migrainosus; F32.9 Major depressive disorder, single episode, unspecified; Z90.49 Acquired absence of other specified parts of digestive tract; Z90.89 Acquired absence of other organs; Z90.710 Acquired absence of both cervix and uterus; Z98.890 Other specified postprocedural states; Z90.722 Acquired absence of ovaries, bilateral; Z88.8 Allergy status to other drugs, medicaments and biological substances; Z91.041 Radiographic dye allergy status; Z88.6 Allergy status to analgesic agent; Y90.9 Presence of alcohol in blood, level not specified
CPT/HCPCS: 36415; 74022; 74176; 80053; 81001; 83690; 85025; 93005; 96361; 96374; 96375; 96376; 99285; J2405; J3010; S0028; J7030